=== PATIENT | female | born 1970 | race Caucasian/White ===

== ENCOUNTER 2018-03-04 08:33 | Day surgery (SDC) | payer BC ==
[~2018-03-04] VITALS: Ht 175.3 cm; Wt 104.3 kg
[~2018-03-04 08:33] MED LIST: DEXILANT60 MG PO; HYDROCODON-ACE1 EA12 PO; LEVOFLOXACIN500 MG PO; LINZESS290 MCG PO; NORCO 5/3251 TABLET PO; ZEGERID OTC 201 EACH PO
[2018-03-04 08:56] VITALS: BP 118/56
[2018-03-04] MEDS ORDERED: NORCO 5/3251 TABLET PO (11:53)
[2018-03-04 13:49] VITALS: BP 127/65
[2018-03-04 14:45] VITALS: BP 119/57
[2018-03-04 16:58] VITALS: BP 119/50
== END 2018-03-04 17:51 | disposition home or self-care (01) ==
LOC: SDC 08:33
PROVIDERS: Anesthesiology
PROC: 0FT44ZZ Resection of Gallbladder, Percutaneous Endoscopic Approach (ICD-10-PCS; principal; 2018-03-04)
DX: K80.10 Calculus of gallbladder with chronic cholecystitis without obstruction (principal); Z90.5 Acquired absence of kidney; K21.9 Gastro-esophageal reflux disease without esophagitis; E66.9 Obesity, unspecified; Z68.33 Body mass index [BMI] 33.0-33.9, adult
CPT/HCPCS: 81025; 88304; J0131; J1170; J2250; J2405; J2710; J2765; J3010; J7643; S0074